=== PATIENT | female | born 1945 | race Caucasian/White ===

== ENCOUNTER → 2023-10-13 11:15 | Outpatient (REF) | payer MEDICARE, OTHER, SELFPAY ==
[2023-10-13 11:41] LABS: HDL Cholesterol 31 mg/dl; LDL Cholesterol, Calculated 19 mg/dl; Total Cholesterol 89 mg/dl (50-199); Triglyceride 196 mg/dl (10-149); Very Low Density Lipoprotein 39 mg/dl (0-30)
== END ==
LOC: OLABN 11:15
PROVIDERS: ATTENDING PHYSICIAN Student in an Organized Health Care Education/Training Program
DX: E78.5 Hyperlipidemia, unspecified (principal)
CPT/HCPCS: 36415; 80061

== ENCOUNTER → 2023-11-09 13:42 | Outpatient (REF) | payer MEDICARE, OTHER, SELFPAY | LOC: WDC 13:42 | PROVIDERS: ATTENDING PHYSICIAN Surgery | DX: R92.8 Other abnormal and inconclusive findings on diagnostic imaging of breast (principal); Z09 Encounter for follow-up examination after completed treatment for conditions other than malignant neoplasm | CPT/HCPCS: 76642 ==

== ENCOUNTER → 2024-08-21 10:40 | Outpatient (REF) | payer MEDICARE, OTHER, SELFPAY ==
[2024-08-21 12:02] LABS: Blood Urea Nitrogen 16 mg/dl (7-17); Calcium 8.4 mg/dl (8.4-10.2); Carbon Dioxide 25 mmol/L (22-30); Chloride 102 mmol/L (98-107); Glucose 262 mg/dl (70-99); Potassium 4.3 mmol/L (3.5-5.1); Sodium 136 mmol/L (135-145); eGFR > 60.00
[2024-08-21 12:03] LABS: % Basophils 0.8 % (0-2); % Eosinophils 5.8 % (0-6); % Immature Granulocytes 0.8 % (0-0.5); % Lymphocytes 19.3 % (20.5-51.1); % Monocytes 9.9 % (1.7-9.3); % Neutrophils 63.4 % (42.2-75.2); Absolute Basophils 0.1 10^3/uL (0-0.2); Absolute Eosinophils 0.7 10^3/uL (0-0.7); Absolute Immature Granulocytes 0.1 10^3/uL (0-0.05); Absolute Lymphocytes 2.3 10^3/uL (1.2-3.4); Absolute Monocytes 1.2 10^3/uL (0.1-0.6); Absolute Neutrophils 7.5 10^3/uL (1.4-6.5); Hematocrit 35.7 % (37.0-47.0); Hemoglobin 11.8 g/dL (12.0-16.0); Mean Corp Hgb Conc. 33.1 g/dL (33.0-37.0); Mean Corpuscular Volume 90.8 fL (81.0-99.0); Mean Platelet Volume 10.2 fL (7.4-10.4); Nucleated Red Blood Cells % 0 %; Platelet Count 274 10^3/uL (130-400); Red Blood Cell Count 3.93 10^6/uL (4.20-5.40); Red Cell Dist. Width 12.9 % (11.5-14.5); White Blood Cell Count 11.8 10^3/uL (4.8-10.8)
== END ==
LOC: OLABN 10:40
PROVIDERS: ATTENDING PHYSICIAN Student in an Organized Health Care Education/Training Program
DX: I10 Essential (primary) hypertension (principal)
CPT/HCPCS: 36415; 80048; 85025

== ENCOUNTER → 2024-08-23 10:57 | Outpatient (REF) | payer MEDICARE, OTHER, SELFPAY ==
[2024-08-24 16:30] LABS: Urine Albumin Trace (Neg - Trace); Urine Bilirubin Negative (Negative); Urine Character Slightly Cloudy (Clear); Urine Color Yellow; Urine Glucose 3+ (Negative); Urine Ketone Negative (Negative); Urine Leukocyte 2+ (Negative); Urine Nitrite Negative (Negative); Urine Occult Blood Trace (Negative); Urine Urobilinogen Negative (Neg - 1+)
[2024-08-24 17:05] LABS: Urine Uric Acid Crystals Present; Urine White Cell 30-40 /HPF (0-5)
[2024-08-24 17:06] LABS: Urine Bacteria Few (Negative)
== END ==
LOC: OLABN 10:57
PROVIDERS: ATTENDING PHYSICIAN Student in an Organized Health Care Education/Training Program
DX: R35.0 Frequency of micturition (principal); R83.8 Other abnormal findings in cerebrospinal fluid
CPT/HCPCS: 81003; 81015; 87086

== ENCOUNTER → 2024-08-30 15:51 | Outpatient (REF) | payer MEDICARE, OTHER, SELFPAY ==
[2024-08-30 16:08] LABS: Ammonia < 9 umol/L (9-30)
[2024-08-30 16:14] LABS: % Basophils 0.9 % (0-2); % Eosinophils 4.7 % (0-6); % Immature Granulocytes 1.2 % (0-0.5); % Lymphocytes 21.9 % (20.5-51.1); % Monocytes 6.4 % (1.7-9.3); % Neutrophils 64.9 % (42.2-75.2); Absolute Basophils 0.1 10^3/uL (0-0.2); Absolute Eosinophils 0.6 10^3/uL (0-0.7); Absolute Immature Granulocytes 0.2 10^3/uL (0-0.05); Absolute Lymphocytes 2.8 10^3/uL (1.2-3.4); Absolute Monocytes 0.8 10^3/uL (0.1-0.6); Absolute Neutrophils 8.4 10^3/uL (1.4-6.5); Hematocrit 40.9 % (37.0-47.0); Mean Corp Hgb Conc. 31.8 g/dL (33.0-37.0); Mean Corpuscular Hgb 29.2 pg (27.0-31.0); Mean Corpuscular Volume 91.9 fL (81.0-99.0); Mean Platelet Volume 9.8 fL (7.4-10.4); Nucleated Red Blood Cells % 0 %; Platelet Count 392 10^3/uL (130-400); Red Blood Cell Count 4.45 10^6/uL (4.20-5.40); Red Cell Dist. Width 12.9 % (11.5-14.5)
[2024-08-30 16:37] LABS: Erythrocyte Sed Rate 29 mm/hour (0-20)
[2024-08-30 16:53] LABS: Uric Acid 2.8 mg/dl (2.5-6.2)
[2024-08-30 16:59] LABS: TSH 1.42 uIU/ml (0.47-4.68)
== END ==
LOC: OLABN 15:51
PROVIDERS: ATTENDING PHYSICIAN Student in an Organized Health Care Education/Training Program
DX: L03.90 Cellulitis, unspecified (principal); I10 Essential (primary) hypertension
CPT/HCPCS: 36415; 82140; 84443; 84550; 85025; 85652; 86140

== ENCOUNTER 2024-08-31 13:46 | Inpatient (IN) | payer MEDICARE, OTHER, SELFPAY ==
[2024-08-31] VITALS (9 sets, daily range): BP systolic 115–165; BP diastolic 65–78; BMI 38.1; BMI 36.5
[2024-08-31 10:28] LABS: Urine Albumin Trace (Neg - Trace); Urine Bilirubin Negative (Negative); Urine Character Slightly Cloudy (Clear); Urine Color Yellow; Urine Glucose 3+ (Negative); Urine Ketone Negative (Negative); Urine Leukocyte 2+ (Negative); Urine Nitrite Negative (Negative); Urine Occult Blood Negative (Negative); Urine Urobilinogen Negative (Neg - 1+)
[2024-08-31 11:06] LABS: % Basophils 1.1 % (0-2); % Eosinophils 6.5 % (0-6); % Immature Granulocytes 1.1 % (0-0.5); % Lymphocytes 22.5 % (20.5-51.1); % Monocytes 5.8 % (1.7-9.3); Absolute Basophils 0.1 10^3/uL (0-0.2); Absolute Eosinophils 0.7 10^3/uL (0-0.7); Absolute Immature Granulocytes 0.1 10^3/uL (0-0.05); Absolute Lymphocytes 2.4 10^3/uL (1.2-3.4); Absolute Monocytes 0.6 10^3/uL (0.1-0.6); Absolute Neutrophils 6.6 10^3/uL (1.4-6.5); Hemoglobin 13.5 g/dL (12.0-16.0); Mean Corp Hgb Conc. 33.8 g/dL (33.0-37.0); Mean Corpuscular Hgb 29.2 pg (27.0-31.0); Mean Corpuscular Volume 86.4 fL (81.0-99.0); Mean Platelet Volume 9.3 fL (7.4-10.4); Nucleated Red Blood Cells % 0 %; Platelet Count 364 10^3/uL (130-400); Red Blood Cell Count 4.63 10^6/uL (4.20-5.40); Red Cell Dist. Width 12.8 % (11.5-14.5); White Blood Cell Count 10.5 10^3/uL (4.8-10.8)
[2024-08-31 12:11] LABS: ALT (SGPT) 34 U/L (0-35); AST (SGOT) 31 U/L (14-36); Albumin 3.5 g/dl (3.5-5.0); Alkaline Phosphatase 106 U/L (38-126); Blood Urea Nitrogen 14 mg/dl (7-17); Calcium 8.8 mg/dl (8.4-10.2); Carbon Dioxide 28 mmol/L (22-30); Chloride 101 mmol/L (98-107); Estimated Creatinine Clearance 84 ml/min; Glucose 264 mg/dl (70-99); Potassium 3.9 mmol/L (3.5-5.1); Sodium 137 mmol/L (135-145); Total Bilirubin 0.6 mg/dl (0.2-1.3); Total Protein 6.5 g/dl (6.3-8.2); eGFR > 60.00
[2024-08-31 12:25] LABS: Urine Amorphous Seen; Urine Squamous Cell 0-2 /LPF (Few)
[2024-08-31 12:26] LABS: Urine Red Blood Cell 0-2 /HPF (0-2); Urine White Cell >100 /HPF (0-5)
[2024-08-31 12:27] LABS: Urine Bacteria Moderate (Negative)
[2024-08-31] MEDS: MAXIPIME 2000 MG IV (12:59)
--- NOTE | 2024-08-31 13:05 | HPS.HSE ---
Family Physician
-
Family Physician: Tasha Moran
Chief Complaint
-
Swollen Rt Knee and aching with movement
History of Present Illness
76F from [facility] s/p Rt knee replacement ( 2021), s/p multiple b/l TKR and revisions at [facility], DMT2 with neuropathy, HX 2 fingers amputation , HLD, CVA, Ambulatory dysfunction, Age-related cognitive impairment and Right toe spacer.
- Today Swollen Rt toe and aching with movement
- POS UA at ER for UTI : S/P PO Doxy for 7days till 08/29. Then start PO Cefdinir since 09/09
- 08/29/24 POS UCX for Proteus mirabilis sensitive to CFTZ and CFP
Medical History
Past Medical History
Past Medical History: Reports CVA, HTN, Hypercholesterolemia and NIDDM (neuropathy )
Additional Past Medical History:
Ambulatory dysfunction, Right toe spacer.
Past Surgical History: Reports Orthopedic (s/p Rt knee replacement ( 05/09/24) and Other ( Right toe spacer.)
Social History
Unable to obtain full social history at this time due to: Dementia
Tobacco: Non-smoker
Alcohol: None
Drug: None
Living: Long-Term (vs SNF )
Family History
Family History: Not pertinent
Allergies / Home Medications
Allergies reflects when Allergies were last updated in [employer].
Home Medications with original date entered in [employer]
Allergy/Medication List:
Allergies
Allergy/AdvReac Type Severity Reaction Status Date / Time
adhesive tape [Adhesive Tape] Allergy Rash Verified 08/31/24 10:01
Home Medications
acetaminophen 325 mg tablet 650 mg (2 x 325 mg) PO Q6HPRN PRN mild pain/ fever>100.5F ##0 03/04/19
amlodipine 5 mg tablet 5 mg PO DAILY #30 tabs 02/03/21
aspirin 81 mg chewable tablet 81 mg PO DAILY #30 tabs 02/03/21
atorvastatin 40 mg tablet 40 mg PO QPM #30 tabs 02/03/21
anastrozole 1 mg tablet 1 mg PO DAILY 08/31/24
bisacodyl 10 mg rectal suppository (Dulcolax (bisacodyl)) 10 mg DC [id number] PRN IF NO BM WITH MOM 08/31/24
tscofdmogwarqzicbwdzbv-plulhieq-btszsjbf 80 0.5 %-1 %-0.5 % eye drops (Refresh Digital) 1 drp BOTH EYES BID 08/31/24
cefdinir 300 mg capsule 300 mg PO BID 08/31/24
colchicine 0.6 mg tablet 0.6 mg PO BID 08/31/24
fluocinonide 0.05 % topical solution 1 applic topical BIDPRN PRN DRY MOUTH 08/31/24
gabapentin 100 mg capsule 100 mg PO TID 08/31/24
lidocaine 4 % topical cream 1 applic topical TID B/L KNEE 08/31/24
lidocaine HCl 4 % topical cream (Aspercreme (lidocaine HCl)) 1 applic topical TID B/L SHOULDER 08/31/24
magnesium hydroxide 400 mg/5 mL oral suspension (Milk of Magnesia) 2,400 mg PO HSPRN PRN CONSTIPATION 08/31/24
memantine 10 mg tablet 10 mg PO HS 08/31/24
phenol-phenolate sodium lozenges 1 alejandrina mucous membrane Q4HPRN PRN SORE THROAT 08/31/24
sennosides 8.6 mg-docusate sodium 50 mg tablet (Senna-S) 2 tab-cap PO QPM 08/31/24
therapeutic multivitamin 1 tab PO DAILY 08/31/24
vibegron 75 mg tablet (Gemtesa) 75 mg PO DAILY 08/31/24
Review of Systems
-
Constitutional: Reports No Symptoms
EENT: Reports No Symptoms
Respiratory: Reports No Symptoms
Cardiac: Reports No Symptoms
Abdomen/GI: Reports No Symptoms
: Reports No Symptoms
Musculoskeletal: Reports Joint Swelling (Rt knee and aching )
Skin: Reports No Symptoms
Neurological: Reports No Symptoms
Endocrine: Reports No Symptoms
Hematologic/Lymphatic: Reports No Symptoms
Psych: Reports No Symptoms
Physical Exam
Vital Signs
Vital Signs
Temp Pulse Resp BP Pulse Ox
98.4 F 70 16 133/68 99
08/31/24 10:02 08/31/24 11:16 08/31/24 11:16 08/31/24 11:16 08/31/24 11:16
Physical Exam
General: Well Developed, Well Nourished and No Apparent Distress
HEENT: NormoCephalic, Moist mucous membranes and Atraumatic
Respiratory: Clear
Cardiac: S1/S2 and Regular Rhythm; No Murmur or Rub
GI: Soft, Non Tender, Non Distended and Normal Bowel Sounds; No Organomegaly
Rectal: Deferred by Provider
Musculoskeletal: No Clubbing, No Cyanosis, No Edema and Other (Rt Knee swelling )
Skin: No Rash
Neuro: Nonfocal/grossly intact
Laboratory Results
-
08/31/24 10:54
08/31/24 11:42
Laboratory Results
Total Bilirubin 0.6 mg/dl (0.2-1.3) 08/31/24 11:42
AST 31 U/L (14-36) 08/31/24 11:42
ALT 34 U/L (0-35) 08/31/24 11:42
Alkaline Phosphatase 106 U/L (38-126) 08/31/24 11:42
Data Reviewed
-
Lab Data: Labs Reviewed by me
Old Records: Reviewed
Impression/Plan
-
Vital Signs
Temp Pulse Resp BP Pulse Ox
98.4 F 70 16 133/68 99
08/31/24 10:02 08/31/24 11:16 08/31/24 11:16 08/31/24 11:16 08/31/24 11:16
Laboratory Tests
08/31/24 08/31/24 08/31/24
10:18 10:54 11:42
WBC 10.5
Hgb 13.5
Plt Count 364
Creatinine 0.4 L
eGFR > 60.00
Glucose 264 H
Urine Nitrite (Reflex) Negative
Leukocyte Esterase Rfl 2+ A
Urine RBC 0-2
Urine WBC (Reflex) >100 A
Ur Squamous Epith Cells 0-2
Urine Bacteria (Reflex) Moderate A
08/29/24 POS UCX for Proteus mirabilis sensitive to CFTZ and CFP
Last hospitalist admission:
DATE OF ADMISSION: 01/31/2021 - DATE OF DISCHARGE: 02/03/2021
DISCHARGE DIAGNOSES:
1. Transient ischemic attack.
2. Right vertebral artery defect.
3. Urinary tract infection.
ASSESSMENT & PLAN
Pending Rx reconciliation
UTI
- POS UA at ER for UTI : S/P PO Doxy for 7days till 08/29. PO Cefdinir since 08/30
- afebrile, nl WCC
- switch to IV CFTX in place of Cefepime and Cefdinir
- IVF
- f/u T curve and WCC
Rt.great toe OM per OP film at [facility]
Rt Toe spacer implant HX
- Repeat XR Rt great toe
- check ESR and CRP
- Hold of directed ABx
- MRI of Rt foot and great toe
- Podiatry consult
Benign HTN
- on Amlodipine 5 mg qd
T2DM with neuropathy
- Uncontrol Hyperglycemia
- not on any OHG agents - report A1C is 10
- add ISS low
- cont. DEVELOPMENTAL SPECIALIST Gabapentin 100mg tid
HX Gout;
- no active flare
- cont. DEVELOPMENTAL SPECIALIST Colchicine
HX CVA/TIA
HLD
- cont baby ASA daily and atorvastatin 40mg qpm
HX Age-related cognitive impairment
HX Ambulatory dysfunction
- on Memantine 10mg HS
- Fall precaution
- PT/OT
DVT Px: LMWH
Code: DNR per daughters at bed side
IP MS
--- NOTE | 2024-08-31 14:23 | ED.GENMED ---
History of Present Illness
General
Chief Complaint: Musculo-Skeletal Complaint
Source: family
Exam Limitations: clinical condition
Time Seen by Provider: 08/31/24 09:59
Nursing documentation reviewed up to this point in time: agreed with
History of Present Illness
History of Present Illness:
79-year-old female presents emergency department due to change in mental status, osteomyelitis seen on exam, concern for urinary tract infection.
Past History
Past History
ED Past Medical History: Asthma, CVA (left thalamic stroke chronic as of January 2021), HTN and NIDDM (Now only diet controlled)
ED Past Surgical History: Orthopedic (Bilateral knee replacements)
Social History
Tobacco: Non-smoker
Alcohol: None
Personal:
Living: alone (daughter's close by and check on her daily)
Review of Systems
Review of Systems
Allergies reviewed?: Yes
All Other Systems: Not applicable
Constitutional: Reports no symptoms
EENT: Reports no symptoms
Respiratory: Reports no symptoms
Cardiac: Reports no symptoms
ABD/GI: Reports no symptoms
: Reports urgency
Musculoskeletal: Reports other (Toe pain)
Phy Exam
Physical Exam
Physical Exam:
Physical Exam
General: Afebrile
Neck: supple. no meningeal signs. normal posterior pharynx
Heart: s1/s2 regular rate and rhythm, no murmur. equal radial
pulses.
HEENT: Pupils equal round reactive to light, EOMI
Lungs: no acute respiratory distress. clear bilaterally
Abdomen: normal bowel sounds. not tender. no CVAT
Neuro: alert and oriented. no focal neurological deficits cranial nerves II through XII intact
Skin: no rash
Psychiatric: well kept. interactive and cooperative
Extremities: no edema. no calf tenderness. negative homans. good distal pulses, dressing in place, erythema of right toe
Course
Orders/Labs/Results
Orders:
Orders
08/31/24 10:18
Urinalysis Reflex To Culture Urgent
Date Specimen was Collected: 08/31/24
Time Specimen was Collected: 10:16
Urine Microscopic Reflex Cult Urgent
Urine Culture Urgent
LEÓN Source: U
Specimen Description:
Date Specimen was Collected: 08/31/24
Time Specimen was Collected: 10:16
08/31/24 10:22
IV Insert/Care/Rem.- Treatment PRN
08/31/24 10:54
Complete Blood Count/With Diff Urgent
Erythrocyte Sed Rate Urgent
08/31/24 11:42
C-Reactive Protein Urgent
Comment: ADD
Comprehensive Metabolic Panel Urgent
08/31/24 12:39
Cefepime HCl [Maxipime] 2,000 mg IV NOW STA
08/31/24 13:13
Add On- LAB Urgent
Tests Added?: esr, crp
Admit/Transfer Patient As Directed
Co-Sign Provider:
Level of Care: Inpatient admission
Assign to:: Medical/Surgical
Physician / Group: [email or web address]
Diagnosis: UTI, Rt toe OM ?
Reason for Hospitalization: UTI, Rt toe OM ?
Expected length of stay greater than two midnights?: Yes
ELOS- Estimated Length of Stay in days: 3
I certify the patient meets the requirements for IP care: Yes
08/31/24 13:16
Code Status As Directed
Resuscitation Status: Full Code
08/31/24 13:38
Toes 2 Views, Right [CR Toe(s) Min 2 Vw Right] Urgent
Comment:
Reason For Exam: toe pain, infection
08/31/24 13:44
Code Status As Directed
Resuscitation Status: Do not resuscitate
Reached after discussion with pt or family/Healthcare POA: Yes
Decision communicated with: 2 daughters at bed side
DNR Bracelet Application ONCE
Abnormal Lab Results
08/31/24 08/31/24 08/31/24
10:18 10:54 11:42
Abs Immat Gran (auto) 0.1 H 10^3/uL
(0-0.05)
Absolute Neuts (auto) 6.6 H 10^3/uL
(1.4-6.5)
Immature Gran % 1.1 H %
(0-0.5)
Eosinophils % 6.5 H %
(0-6)
Creatinine 0.4 L mg/dL
(0.6-1.0)
Glucose 264 H mg/dl
(70-99)
Leukocyte Esterase Rfl 2+ A
(Negative)
Urine WBC (Reflex) >100 A /HPF
(0-5)
Urine Bacteria (Reflex) Moderate A
(Negative)
Urine Glucose 3+ A
(Negative)
08/31/24 10:54
08/31/24 11:42
Vital Signs
Initial and Last Documented VS:
Initial Vital Signs
Temp Pulse Resp BP Pulse Ox
98.4 F 75 18 142/71 98
08/31/24 10:02 08/31/24 10:02 08/31/24 10:02 08/31/24 10:02 08/31/24 10:02
Last Documented Vital Signs
Temp Pulse Resp BP Pulse Ox
98.4 F 88 16 155/68 99
08/31/24 10:02 08/31/24 13:15 08/31/24 13:15 08/31/24 13:00 08/31/24 13:15
MDM/Problems Addressed
Differential Diagnosis Includes:
UTI, osteomyelitis
MDM/Problems Addressed:
79-year-old female with osteomyelitis right toe, first, UTI. Admit to hospitalist. IV cefepime given.
Chronic conditions affecting care: DM
*Radiology
Radiology exam reviewed: radiology read reviewed (X-ray from detention reviewed showing osteomyelitis right first)
*Pulse Oximetry
Patient hypoxic: no
*Critical Care Note
Total Time (30-74mins, 75-104mins- exclusive of procedures): Not Applicable
Data Reviewed
Review of Other/Old Records Reveals: Radiology Studies
Patient Management
Social determinants of health affecting care: Living situation and Strong social support
Discussion with other providers: Hospitalist
Escalation/DeEscalation of care consider admission/obs:
Admission indicated
ED Attending Note
-
Portions of this chart may have been created with voice recognition software.� Occasional wrong word or��sound alike� substitutions may have occurred due to the inherent limitations of voice recognition software.
Discharge Plan
Departure
Patient Disposition: Admit
Date of Disposition: 08/31/24
Time of Disposition: 12:41
Admit to: Med/Surg
Presentation/result/management discussed w/ accepting MD/DO: Hospitalist
Patient with high blood pressure during this ER visit?: Yes
Condition: Fair
Discharge Problem:
Acute UTI, Acute osteomyelitis of toe of right foot
Interventions
Interventions:
*Risk Screen - Suicide Last Done: 08/31/24 10:02
*General Assessment Last Done: 08/31/24 10:02
*Neglect/Abuse Screening Last Done: 08/31/24 10:02
*ED COVID-19 Vaccine History Last Done: 08/31/24 10:14
ED-Musculoskeletal Assessment Last Done: 08/31/24 10:11
[2024-08-31 14:59] LABS: Erythrocyte Sed Rate 36 mm/hour (0-20)
[2024-08-31] MEDS: LOVENOX 40 MG SC (17:21)
[2024-08-31] MEDS: LIPITOR 40 MG PO (17:21)
[2024-08-31] MEDS: NEURONTIN 100 MG PO ×2 (17:21→21:20)
[2024-08-31] MEDS: SENOKOT-S 1 TABLET PO (17:21)
[2024-08-31] MEDS: ROCEPHIN 1000 MG IV (17:22)
[2024-08-31] MEDS: STERILE WATER FOR INJECTION 10 ML IV (17:23)
[2024-08-31 17:45] LABS: Glucose - Point of Care 236 mg/dl (70-99)
[2024-08-31] MEDS: NOVOLOG FLEXPEN-LOW RESISTANCE 2 UNITS SC (19:12)
[2024-08-31] MEDS: COLCHICINE 0.6 MG PO (21:03)
[2024-08-31] MEDS: DESENEX/MITRAZOL/ZEASORB 1 APPLIC TOPICAL (21:03)
[2024-08-31] MEDS: REFRESH EYE DROPS (PF) 1 DROPS BOTH EYES (21:03)
[2024-08-31] MEDS: NAMENDA 10 MG PO (21:16)
[2024-08-31 23:02] LABS: Glucose - Point of Care 256 mg/dl (70-99)
[2024-09-01 00:41] VITALS: BP 134/65
[2024-09-01 06:00] VITALS: BMI 37.0
[2024-09-01 07:08] LABS: Hematocrit 39.4 % (37.0-47.0); Hemoglobin 13.5 g/dL (12.0-16.0); Mean Corp Hgb Conc. 34.3 g/dL (33.0-37.0); Mean Corpuscular Hgb 29.4 pg (27.0-31.0); Mean Corpuscular Volume 85.8 fL (81.0-99.0); Mean Platelet Volume 9.5 fL (7.4-10.4); Platelet Count 348 10^3/uL (130-400); Red Blood Cell Count 4.59 10^6/uL (4.20-5.40); Red Cell Dist. Width 12.9 % (11.5-14.5); White Blood Cell Count 10.1 10^3/uL (4.8-10.8)
[2024-09-01 07:30] LABS: ALT (SGPT) 35 U/L (0-35); AST (SGOT) 30 U/L (14-36); Albumin 3.6 g/dl (3.5-5.0); Alkaline Phosphatase 110 U/L (38-126); Blood Urea Nitrogen 13 mg/dl (7-17); Calcium 8.8 mg/dl (8.4-10.2); Carbon Dioxide 24 mmol/L (22-30); Chloride 102 mmol/L (98-107); Estimated Creatinine Clearance 83 ml/min; Glucose 238 mg/dl (70-99); Potassium 4.1 mmol/L (3.5-5.1); Sodium 137 mmol/L (135-145); Total Bilirubin 0.6 mg/dl (0.2-1.3); Total Protein 6.6 g/dl (6.3-8.2); eGFR > 60.00
[2024-09-01 07:36] VITALS: BP 164/82
[2024-09-01 07:50] LABS: Glucose - Point of Care 226 mg/dl (70-99)
--- NOTE | 2024-09-01 09:12 | W.PN.UPDATE ---
Update Note
Progress Note Update
pt seen at bedside
full consult dictated
was consulted for osteo hallux right foot, xrays and mroi was ordered
xray neg for osteo, pt has 2 small superficial scabs on hallux
no edema or erythema'
no soi
rec watching, no need for mri at this point
fu with dpm and watch for any soi
call if needed
will sign off, I dw hospitalist dr daniel
[2024-09-01] MEDS: ARIMIDEX 1 MG PO (09:27)
[2024-09-01] MEDS: COLCHICINE 0.6 MG PO ×2 (09:27→21:00)
[2024-09-01] MEDS: LOW STRENGTH ASPIRIN 81 MG PO (09:27)
[2024-09-01] MEDS: NORVASC 5 MG PO (09:27)
[2024-09-01] MEDS: DESENEX/MITRAZOL/ZEASORB 1 APPLIC TOPICAL ×2 (09:28→21:33)
[2024-09-01] MEDS: REFRESH EYE DROPS (PF) 1 DROPS BOTH EYES ×2 (09:28→21:33)
[2024-09-01] MEDS: NEURONTIN 100 MG PO ×3 (09:28→21:32)
[2024-09-01] MEDS: NOVOLOG FLEXPEN-LOW RESISTANCE 2 UNITS SC (09:28)
--- NOTE | 2024-09-01 10:27 | W.PN.HOSP.TC ---
Today's Communication/Plan
-
see outlined plan
d/w daughter
Assessment / Plan
Assessment / Plan
Assessment:
UTI
- Proteus per Urine culture 08/29; was treated with Doxy although shows tetracycline resistance
- continue Ceftriaxone day 1
- follow repeat culture
R great toe cellulitis
- sent in from [facility] podiatry for concern of OM
- X-ray here negative, shows degenerative osteoarthritis with moderate-severe joint space narrowing and mild degenerative spurring at the metatarsophalangeal and interphalangeal joints. Also soft tissue swelling.
- doubt OM with negative Xray. fairly low ESR/CRP
- defer MRI as per Podiatry recs
- monitor clinically
- continue Rocephin, add Doxy
Essential HTN
- continue Amlodipine 5 mg
Type 2 DM with neuropathy
- continue SSI
- check A1c
- continue Gabapentin
Hx of Gout
- continue GIS APPLICATION DEVELOPER colchicine
- no evidence of acute flare
Hx of CVA/TIA
HLD
- continue ASA/Statin
HX Age-related cognitive impairment
HX Ambulatory dysfunction
- on Memantine 10mg HS
- Fall precaution
- PT/OT as able
DVT ppx: Lovenox
Code: DNR/DNI
Anticipated Discharge: > 48 hours
Subjective/Interval History
-
Date of Service: September 01, 2024
no acute complaints
Objective Data
-
Labs:
Laboratory Results
09/01/24 09/01/24
06:15 06:16
WBC 10.1
Hgb 13.5
Hct 39.4
Plt Count 348
Sodium 137
Potassium 4.1
Chloride 102
Carbon Dioxide 24
BUN 13
Creatinine 0.5 L
Glucose 238 H
Calcium 8.8
Total Bilirubin 0.6
AST 30
ALT 35
Alkaline Phosphatase 110
Vital Signs:
Vital Signs
Temp Pulse Resp BP Pulse Ox
98.4 F 76 16 164/82 99
09/01/24 07:36 09/01/24 07:36 09/01/24 07:36 09/01/24 07:36 09/01/24 07:36
I&O
08/31/24 09/01/24 09/02/24
06:59 06:59 06:59
Intake Total 600 / 600
Balance 600 / 600
Physical Exam
-
General: No Apparent Distress
HEENT: Normocephalic and Atraumatic
Respiratory: Negative Wheezes
Cardiac: Regular Rhythm and S1/S2
GI: Soft and Nontender
Genito-urinary: No Costovertebral Tender
Musculoskeletal: No Edema
Skin: Other (R hallux with slight redness, tenderness, 2 scabbed wounds, no drainage)
Neuro: AO x 3
Hematologic / Lymphatic: No Lymphadenopathy
Psych: Calm
Data Reviewed
-
Total Time Spent with Patient (in minutes): 42
Labs: Labs Reviewed by me
[2024-09-01 11:53] LABS: Glucose - Point of Care 312 mg/dl (70-99)
[2024-09-01] MEDS: NOVOLOG FLEXPEN-LOW RESISTANCE 4 UNITS SC ×2 (12:32→17:42)
[2024-09-01] MEDS: VIBRAMYCIN 100 MG PO ×2 (12:32→21:00)
[2024-09-01 12:36] VITALS: BMI 37.0
[2024-09-01 16:57] LABS: Glucose - Point of Care 338 mg/dl (70-99)
[2024-09-01 17:10] VITALS: BP 134/80
[2024-09-01] MEDS: ROCEPHIN 1000 MG IV (17:38)
[2024-09-01] MEDS: LOVENOX 40 MG SC (17:39)
[2024-09-01] MEDS: LIPITOR 40 MG PO (17:39)
[2024-09-01] MEDS: SENOKOT-S 1 TABLET PO (17:40)
[2024-09-01] MEDS: STERILE WATER FOR INJECTION 10 ML IV (17:43)
[2024-09-01] MEDS: NAMENDA 10 MG PO (21:32)
[2024-09-01 22:12] LABS: Glucose - Point of Care 279 mg/dl (70-99)
[2024-09-01 23:00] VITALS: BP 146/67
[2024-09-02 06:00] VITALS: BMI 37.3
[2024-09-02 07:12] LABS: Glucose - Point of Care 240 mg/dl (70-99)
[2024-09-02 07:30] VITALS: BP 149/80
[2024-09-02 07:46] LABS: Hemoglobin 12.9 g/dL (12.0-16.0); Mean Corp Hgb Conc. 34.9 g/dL (33.0-37.0); Mean Platelet Volume 9.6 fL (7.4-10.4); Platelet Count 367 10^3/uL (130-400); White Blood Cell Count 9.8 10^3/uL (4.8-10.8)
[2024-09-02 08:24] LABS: Blood Urea Nitrogen 11 mg/dl (7-17); Calcium 8.4 mg/dl (8.4-10.2); Carbon Dioxide 25 mmol/L (22-30); Chloride 102 mmol/L (98-107); Estimated Creatinine Clearance 83 ml/min; Glucose 242 mg/dl (70-99); Potassium 3.9 mmol/L (3.5-5.1); Sodium 135 mmol/L (135-145); eGFR > 60.00
[2024-09-02] MEDS: NOVOLOG FLEXPEN-LOW RESISTANCE 2 UNITS SC ×2 (10:12→17:07)
[2024-09-02] MEDS: ARIMIDEX 1 MG PO (10:13)
[2024-09-02] MEDS: LOW STRENGTH ASPIRIN 81 MG PO (10:13)
[2024-09-02] MEDS: NEURONTIN 100 MG PO ×3 (10:13→19:48)
[2024-09-02] MEDS: NORVASC 5 MG PO (10:13)
[2024-09-02] MEDS: COLCHICINE 0.6 MG PO ×2 (10:13→19:48)
[2024-09-02] MEDS: DESENEX/MITRAZOL/ZEASORB 1 APPLIC TOPICAL ×2 (10:14→19:48)
[2024-09-02] MEDS: REFRESH EYE DROPS (PF) 1 DROPS BOTH EYES ×2 (10:14→19:48)
[2024-09-02] MEDS: VIBRAMYCIN 100 MG PO ×2 (10:14→19:48)
[2024-09-02 10:47] VITALS: BP 145/70; PULSE 88; O2SAT 96
[2024-09-02 11:35] LABS: Glucose - Point of Care 288 mg/dl (70-99)
[2024-09-02] MEDS: NOVOLOG FLEXPEN-LOW RESISTANCE 3 UNITS SC (12:49)
--- NOTE | 2024-09-02 13:27 | CM ---
CM reviewed chart, patient seen bedside. Per PT notes, patient LTC resident at [facility], uses bonnie lift, dependent for care. Referral placed to [facility] in [facility], will need facility to confirm PCP and Pharmacy. CM will continue to
follow for all discharge planning needs.
Plan; Return to [facility] when medically stable, will require ambulance transport.
--- NOTE | 2024-09-02 14:14 | W.PN.HOSP.TC ---
Today's Communication/Plan
-
continue Abx for cellulitis
DC planning
Assessment / Plan
Assessment / Plan
Assessment:
UTI
- Proteus per Urine culture 08/29; was treated with Doxy although shows tetracycline resistance; and Cefdinir
- repeat culture negative
R great toe cellulitis, exacerbated by underlying T2DM
- sent in from [facility] podiatry for concern of OM
- X-ray here negative, shows degenerative osteoarthritis with moderate-severe joint space narrowing and mild degenerative spurring at the metatarsophalangeal and interphalangeal joints. Also soft tissue swelling.
- doubt OM with negative Xray. fairly low ESR/CRP
- defer MRI as per Podiatry recs
- monitor clinically
- continue Rocephin, day 2, Doxy, day 2
Essential HTN
- continue Amlodipine 5 mg
Type 2 DM with neuropathy
- continue SSI
- A1c 10.2 recently
- continue Gabapentin
Hx of Gout
- continue TIME CHECKER colchicine
- no evidence of acute flare
Hx of CVA/TIA
HLD
- continue ASA/Statin
HX Age-related cognitive impairment
HX Ambulatory dysfunction
- on Memantine 10mg HS
- Fall precaution
- PT/OT as able
DVT ppx: Lovenox
Code: DNR/DNI
Anticipated Discharge: 24 - 48 hours
Subjective/Interval History
-
Date of Service: September 02, 2024
denies any complaints
Objective Data
-
Labs:
Laboratory Results
09/02/24
06:41
WBC 9.8
Hgb 12.9
Hct 37.0
Plt Count 367
Sodium 135
Potassium 3.9
Chloride 102
Carbon Dioxide 25
BUN 11
Creatinine 0.5 L
Glucose 242 H
Calcium 8.4
Vital Signs:
Vital Signs
Temp Pulse Resp BP Pulse Ox
98.3 F 82 18 149/80 98
09/02/24 07:30 09/02/24 07:30 09/02/24 07:30 09/02/24 07:30 09/02/24 07:30
I&O
09/01/24 09/02/24 09/03/24
06:59 06:59 06:59
Intake Total 600 / 600 830 / 830 600 / 600
Balance 600 / 600 830 / 830 600 / 600
Physical Exam
-
General: No Apparent Distress
HEENT: Normocephalic and Atraumatic
Respiratory: Negative Wheezes
Cardiac: Regular Rhythm and S1/S2
GI: Soft
Genito-urinary: No Costovertebral Tender
Skin: Other (R hallux with improved redness, less tenderness, 2 scabbed wounds, no drainage)
Neuro: Awake and Alert
Hematologic / Lymphatic: No Lymphadenopathy
Psych: Apparent Dementia
Data Reviewed
-
Total Time Spent with Patient (in minutes): 44
Labs: Labs Reviewed by me
[2024-09-02 15:50] VITALS: BP 189/91
[2024-09-02 16:00] VITALS: BP 144/84
[2024-09-02 16:35] LABS: Glucose - Point of Care 232 mg/dl (70-99)
[2024-09-02] MEDS: LIPITOR 40 MG PO (17:07)
[2024-09-02] MEDS: GLUCOPHAGE 500 MG PO (17:07)
[2024-09-02] MEDS: ROCEPHIN 1000 MG IV (17:08)
[2024-09-02] MEDS: STERILE WATER FOR INJECTION 10 ML IV (17:08)
[2024-09-02] MEDS: SENOKOT-S 1 TABLET PO (17:08)
[2024-09-02] MEDS: LOVENOX 40 MG SC (17:08)
[2024-09-02] MEDS: NAMENDA 10 MG PO (19:48)
[2024-09-02 22:45] LABS: Glucose - Point of Care 205 mg/dl (70-99)
[2024-09-02 23:30] VITALS: BP 147/78
[2024-09-03 06:00] VITALS: BMI 36.5
[2024-09-03 07:00] VITALS: BP 131/78
[2024-09-03 07:25] LABS: Glucose - Point of Care 240 mg/dl (70-99)
[2024-09-03 07:57] LABS: Hemoglobin 13.1 g/dL (12.0-16.0); Mean Corp Hgb Conc. 34.5 g/dL (33.0-37.0); Mean Corpuscular Hgb 29.6 pg (27.0-31.0); Mean Corpuscular Volume 85.8 fL (81.0-99.0); Mean Platelet Volume 9.5 fL (7.4-10.4); Platelet Count 357 10^3/uL (130-400); Red Blood Cell Count 4.43 10^6/uL (4.20-5.40); White Blood Cell Count 10.5 10^3/uL (4.8-10.8)
[2024-09-03 08:41] LABS: Blood Urea Nitrogen 14 mg/dl (7-17); Calcium 8.8 mg/dl (8.4-10.2); Carbon Dioxide 22 mmol/L (22-30); Chloride 102 mmol/L (98-107); Estimated Creatinine Clearance 82 ml/min; Glucose 257 mg/dl (70-99); Sodium 135 mmol/L (135-145); eGFR > 60.00
[2024-09-03] MEDS: NOVOLOG FLEXPEN-LOW RESISTANCE 2 UNITS SC (09:46)
[2024-09-03] MEDS: VIBRAMYCIN 100 MG PO (09:47)
[2024-09-03] MEDS: NEURONTIN 100 MG PO (09:47)
[2024-09-03] MEDS: ARIMIDEX 1 MG PO (09:48)
[2024-09-03] MEDS: NORVASC 5 MG PO (09:48)
[2024-09-03] MEDS: LOW STRENGTH ASPIRIN 81 MG PO (09:48)
[2024-09-03] MEDS: GLUCOPHAGE 500 MG PO (09:48)
[2024-09-03] MEDS: COLCHICINE 0.6 MG PO (09:49)
[2024-09-03] MEDS: DESENEX/MITRAZOL/ZEASORB 1 APPLIC TOPICAL (09:50)
--- NOTE | 2024-09-03 10:50 | WOUNDNOTE ---
WON RN note: Patient admitted with Acute UTI.
See H&P for complete history. Dong Moran.
PMH: bilateral knee replacement, Moh's RLE for squamous cell carcinoma, R 3rd toe tip callus-follows Dr. Mcdaniels, asthma, HTN, NIDDM, L lower leg calcium deposit on bone.
Wound Location and type/assessment: Patient known to service, last seen 02/02/21 for R toe callus, no issues now. Daughter Queenie at bedside, updated this copywriter on stage 3 Sacral PI, has offloading cushion and air mattress at MD. Daughter assessed
and say's wound looks worse. Base is yellow mixed with pink and excoriated skin b/l sides of wound. Patient turned with assist of nurse Will, patient easy to turn. Yeast rash in abdominal folds and breasts, fungal powder in use. R great toe with
intact dry scabs, residual peeling dry skin. Reviewed Dr. Jonas's note, no intervention needed at this time. Daughter confirmed looks much better, less red and swollen. Heels blanchable red, foams in use.
Appetite: Fair, encouraged protein in diet.
Pressure redistribution devices in place: Air overlay in use, palm check done with adequate inflation. Patient is able to turn with minimal assist in bed. 2 pillows under calves.
Plan: Silicone border foam applied to sacrum, will order Santyl to start tomorrow. Mineral oil for legs and feet daily. Changed adhesive foams on heels. Nurse Will made aware. Pressure ulcer prevention measures reviewed with patient and daughter.
Turning schedule maintained, confirmed nurse.
Nursing care plan to be updated, will confirm orders with hospitalist and follow as needed.
[2024-09-03] MEDS: REFRESH EYE DROPS (PF) 1 DROPS BOTH EYES (11:01)
--- NOTE | 2024-09-03 11:15 | W.PN.HOSP.TC ---
Addendum entered and electronically signed by Kartik Cat MD 09/04/24 06:59:
stage 2 sacral pressure injury
Addendum entered and electronically signed by Kartik Cat MD 09/03/24 11:27:
Metformin was started for A1c 10
Original Note:
Today's Communication/Plan
-
dc to SNF
Assessment / Plan
Assessment / Plan
Assessment:
UTI
- Proteus per Urine culture 08/29; was treated with Doxy although shows tetracycline resistance; and Cefdinir
- repeat culture negative
R great toe cellulitis, exacerbated by underlying T2DM
- sent in from [facility] podiatry for concern of OM
- X-ray here negative, shows degenerative osteoarthritis with moderate-severe joint space narrowing and mild degenerative spurring at the metatarsophalangeal and interphalangeal joints. Also soft tissue swelling.
- doubt OM with negative Xray. fairly low ESR/CRP
- defer MRI as per Podiatry recs
- monitor clinically
- DC on Cefdinir/Doxy for 8 additional days
Essential HTN
- continue Amlodipine 5 mg
Type 2 DM with neuropathy
- continue SSI
- A1c 10.2 recently
- continue Gabapentin
Hx of Gout
- continue HEAD CHAR FILTER TANK TENDER colchicine
- no evidence of acute flare
Hx of CVA/TIA
HLD
- continue ASA/Statin
HX Age-related cognitive impairment
HX Ambulatory dysfunction
- on Memantine 10mg HS
- Fall precaution
- PT/OT as able
DVT ppx: Lovenox
Code: DNR/DNI
More than 30 minutes spent in discharge including
Final examination of the patient
Summarizing hospital stay
Instructions for continuing care to all relevant caregivers
Preparation of discharge records, prescriptions, and referral forms
Total time spent (in minutes): 41
Anticipated Discharge: Today
Subjective/Interval History
-
Date of Service: September 03, 2024
denies any new complaints at present
Objective Data
-
Labs:
Laboratory Results
09/03/24
06:37
WBC 10.5
Hgb 13.1
Hct 38.0
Plt Count 357
Sodium 135
Potassium 4.0
Chloride 102
Carbon Dioxide 22
BUN 14
Creatinine 0.5 L
Glucose 257 H
Calcium 8.8
Vital Signs:
Vital Signs
Temp Pulse Resp BP Pulse Ox
98.2 F 79 18 131/78 97
09/03/24 07:00 09/03/24 07:00 09/03/24 07:00 09/03/24 07:00 09/03/24 07:00
I&O
09/02/24 09/03/24 09/04/24
06:59 06:59 06:59
Intake Total 830 / 830 1320 / 1320
Balance 830 / 830 1320 / 1320
Physical Exam
-
General: No Apparent Distress
HEENT: Normocephalic and Atraumatic
Respiratory: Negative Wheezes
Cardiac: Regular Rhythm and S1/S2
GI: Soft
Genito-urinary: No Costovertebral Tender
Skin: Other (R hallux with improved redness, less tenderness, 2 scabbed wounds, no drainage)
Neuro: AO x 3
Psych: Calm
Data Reviewed
-
Total Time Spent with Patient (in minutes): 41
Labs: Labs Reviewed by me
--- NOTE | 2024-09-03 11:26 | CM ---
Patient for transfer back to [facility] today 3 pm via ambulance transport.
Daughter and son in law aware.
Saleem from [facility] updated.
IMM completed.
Plan: back to [facility] today
[facility]

[address] ground.
--- NOTE | 2024-09-03 11:26 | W.DS.TRANS ---
DC Summary - Nursing Agency Manager
-
Discharge Instructions:
Discharge Diagnosis/Procedures R hallux cellulitis
Diet Diabetic, Carb Controlled,Low Cholesterol
Activity As tolerated
Bathing Restrictions None
Instructions:
Stand-Alone Forms:
Changes to Home Medications: No
Discharge Medications:
DC Medications w/original date entered in [facility]
acetaminophen 325 mg tablet 650 mg (2 x 325 mg) PO Q6HPRN PRN mild pain/ fever>100.5F ##0 03/04/19
amlodipine 5 mg tablet 5 mg PO DAILY Blood Pressure 08/31/24
anastrozole 1 mg tablet 1 mg PO DAILY Hormonal Agent 08/31/24
aspirin 81 mg chewable tablet 81 mg PO DAILY Blood Clot Prevention/Tx 08/31/24
atorvastatin 40 mg tablet 40 mg PO QPM High Cholesterol 08/31/24
bisacodyl 10 mg rectal suppository (Dulcolax (bisacodyl)) 10 mg VA [id number] PRN IF NO BM WITH MOM 08/31/24
kcdkefgbszejzlsrrutmof-pewcvbfm-pibcdusz 80 0.5 %-1 %-0.5 % eye drops (Refresh Digital) 1 drp BOTH EYES BID Eye Condition 08/31/24
colchicine 0.6 mg tablet 0.6 mg PO BID Gout 08/31/24
fluocinonide 0.05 % topical solution 1 applic topical BIDPRN PRN DRY MOUTH 08/31/24
gabapentin 100 mg capsule 100 mg PO TID Pain 08/31/24
lidocaine 4 % topical cream 1 applic topical TID B/L KNEE 08/31/24
lidocaine HCl 4 % topical cream (Aspercreme (lidocaine HCl)) 1 applic topical TID B/L SHOULDER 08/31/24
magnesium hydroxide 400 mg/5 mL oral suspension (Milk of Magnesia) 2,400 mg PO HSPRN PRN CONSTIPATION 08/31/24
memantine 10 mg tablet 10 mg PO HS Neurological Condition 08/31/24
phenol-phenolate sodium lozenges 1 alejandrina mucous membrane Q4HPRN PRN SORE THROAT 08/31/24
sennosides 8.6 mg-docusate sodium 50 mg tablet (Senna-S) 2 tab-cap PO QPM Constipation 08/31/24
therapeutic multivitamin 1 tab PO DAILY Supplement 08/31/24
vibegron 75 mg tablet (Gemtesa) 75 mg PO DAILY Urinary Issue 08/31/24
cefdinir 300 mg capsule 300 mg PO BID Infection #16 caps 09/03/24
doxycycline hyclate 100 mg capsule 100 mg PO Q12 #16 caps 09/03/24
metformin 500 mg tablet 500 mg PO BID@0800,1700 #60 tabs 09/03/24
Home Medication Changes
Pending Results: No
Total time spent discharging patient (in min): 41
[2024-09-03 12:07] LABS: Glucose - Point of Care 287 mg/dl (70-99)
[2024-09-03] MEDS: NOVOLOG FLEXPEN-LOW RESISTANCE 3 UNITS SC (13:06)
[2024-09-03 15:00] VITALS: BP 146/79
--- NOTE | 2024-09-03 15:42 | PN.CDI ---
CDI
- -
CDI:
Physician Documentation Request
Admit Date: 08/31/24 13:46
Dear Doctor Emory,
09/03 WOCN note states '...stage 2 sacral injury'
Physician documentation of the type and location of wounds is required for compliant documentation. Based on the above clinical findings and your assessment, please provide the following in your progress note:
1. Location of the ulcer/wound, including laterality.
2. Type (etiology) of ulcer/wound:
- Diabetic ulcer
- Traumatic wound
- Pressure (decubitus) ulcer
- Other
Use of terms such as suspected, likely, concern for, or probable (associated with a specific diagnosis that is being evaluated, monitored, or treated as if it exists) are acceptable and can be coded in the inpatient setting, when documented at the
time of discharge.
Thank you,
Yuliya Deal RN, BSN
CDI Specialist
tiger text
Please use your independent medical judgment in providing your response.
*Source: National Pressure Ulcer Advisory Panel (NPUAP)
== END 2024-09-03 16:16 | DRG 603 ==
LOC: 4 WEST ACU 13:46
PROVIDERS: ADMITTING PHYSICIAN Internal Medicine; ATTENDING PHYSICIAN Internal Medicine; CONSULT PHYSICIAN Podiatrist Foot Surgery; EMERGENCY PHYSICIAN Emergency Medicine
DX: L03.031 Cellulitis of right toe (principal); N39.0 Urinary tract infection, site not specified; M86.171 Other acute osteomyelitis, right ankle and foot; E11.40 Type 2 diabetes mellitus with diabetic neuropathy, unspecified; I10 Essential (primary) hypertension; M10.9 Gout, unspecified; Z86.73 Personal history of transient ischemic attack (TIA), and cerebral infarction without residual deficits; E78.00 Pure hypercholesterolemia, unspecified; E11.65 Type 2 diabetes mellitus with hyperglycemia; F03.90 Unspecified dementia, unspecified severity, without behavioral disturbance, psychotic disturbance, mood disturbance, and anxiety; Z79.899 Other long term (current) drug therapy; Z79.82 Long term (current) use of aspirin; Z66 Do not resuscitate; J45.909 Unspecified asthma, uncomplicated; Z96.653 Presence of artificial knee joint, bilateral; L89.152 Pressure ulcer of sacral region, stage 2
CPT/HCPCS: 36415; 73660; 80048; 80053; 81003; 81015; 82140; 82728; 82962; 84443; 84550; 85025; 85027; 85652; 86140; 87070; 87086; 87088; 87186; 96374; 97163; 99285

== ENCOUNTER → 2024-09-27 10:25 | Outpatient (REF) | payer MEDICARE, OTHER, SELFPAY ==
[2024-09-27 11:30] LABS: Urine Albumin Trace (Neg - Trace); Urine Bilirubin Negative (Negative); Urine Glucose Negative (Negative); Urine Ketone Negative (Negative); Urine Leukocyte Negative (Negative); Urine Nitrite Negative (Negative); Urine Occult Blood Negative (Negative); Urine Specific Gravity 1.005 (<1.030); Urine Urobilinogen Negative (Neg - 1+)
[2024-09-27 11:31] LABS: Urine Character Cloudy (Clear); Urine Color Yellow
== END ==
LOC: OLABN 10:25
PROVIDERS: ATTENDING PHYSICIAN Student in an Organized Health Care Education/Training Program
DX: N39.0 Urinary tract infection, site not specified (principal); R41.82 Altered mental status, unspecified; R82.90 Unspecified abnormal findings in urine
CPT/HCPCS: 36415; 81003; 87086

== ENCOUNTER → 2024-09-28 08:51 | Outpatient (REF) | payer OTHER, MEDICARE, SELFPAY ==
[2024-09-28 10:19] LABS: % Basophils 0.7 % (0-2); % Immature Granulocytes 0.9 % (0-0.5); % Lymphocytes 25.8 % (20.5-51.1); % Neutrophils 57.6 % (42.2-75.2); Absolute Basophils 0.1 10^3/uL (0-0.2); Absolute Eosinophils 0.7 10^3/uL (0-0.7); Absolute Immature Granulocytes 0.1 10^3/uL (0-0.05); Absolute Lymphocytes 2.6 10^3/uL (1.2-3.4); Absolute Monocytes 0.8 10^3/uL (0.1-0.6); Absolute Neutrophils 5.7 10^3/uL (1.4-6.5); Hematocrit 35.7 % (37.0-47.0); Hemoglobin 11.6 g/dL (12.0-16.0); Mean Corp Hgb Conc. 32.5 g/dL (33.0-37.0); Mean Corpuscular Hgb 29.4 pg (27.0-31.0); Mean Corpuscular Volume 90.4 fL (81.0-99.0); Mean Platelet Volume 9.8 fL (7.4-10.4); Nucleated Red Blood Cells % 0 %; Platelet Count 267 10^3/uL (130-400); Red Blood Cell Count 3.95 10^6/uL (4.20-5.40); Red Cell Dist. Width 13.8 % (11.5-14.5); White Blood Cell Count 9.9 10^3/uL (4.8-10.8)
[2024-09-28 10:39] LABS: ALT (SGPT) 25 U/L (0-35); AST (SGOT) 27 U/L (14-36); Albumin 3.1 g/dl (3.5-5.0); Alkaline Phosphatase 110 U/L (38-126); Blood Urea Nitrogen 9 mg/dl (7-17); Carbon Dioxide 26 mmol/L (22-30); Chloride 102 mmol/L (98-107); Glucose 147 mg/dl (70-99); Potassium 3.9 mmol/L (3.5-5.1); Sodium 138 mmol/L (135-145); Total Bilirubin 0.6 mg/dl (0.2-1.3); Total Protein 5.5 g/dl (6.3-8.2); eGFR > 60.00
== END ==
LOC: OLABN 08:51
PROVIDERS: ATTENDING PHYSICIAN Student in an Organized Health Care Education/Training Program
DX: R41.82 Altered mental status, unspecified (principal)
CPT/HCPCS: 36415; 80053; 84439; 84443; 85025

== ENCOUNTER → 2024-10-18 10:59 | Outpatient (REF) | payer MEDICARE, OTHER, SELFPAY ==
[2024-10-18 12:34] LABS: HDL Cholesterol 40 mg/dl; LDL Cholesterol, Calculated 53 mg/dl; Total Cholesterol 132 mg/dl (50-199); Triglyceride 197 mg/dl (10-149); Very Low Density Lipoprotein 39 mg/dl (0-30)
== END ==
LOC: OLABN 10:59
PROVIDERS: ATTENDING PHYSICIAN Student in an Organized Health Care Education/Training Program
DX: E78.5 Hyperlipidemia, unspecified (principal)
CPT/HCPCS: 36415; 80061